=== PATIENT | female | born 1975 | race Caucasian/White ===

== ENCOUNTER 2020-09-18 07:59 | Inpatient (IN) | payer OTHER ==
[~2020-09-18] VITALS: Ht 157.5 cm; Wt 72.6 kg
[~2020-09-18 07:59] MED LIST: AMOXICILLIN875 MG PO
[2020-09-18 08:59] LABS: HEMOGLOBIN 14.8 gm/dl (12.3-15.3); RED BLOOD COUNT 4.88 M/UL (4.00-5.10); WHITE BLOOD COUNT 8.5 K/UL (4.5-11.0)
[2020-09-18 09:33] LABS: BUN/CREATININE RATIO 12 (0-10)
[2020-09-18] MEDS ORDERED: FARXIGA10 MG PO (11:46)
[2020-09-18] MEDS ORDERED: JANUVIA 100 MG100 MG PO (11:46)
[2020-09-18] MEDS ORDERED: IBUPROFEN200 MG PO (11:46)
[2020-09-18] MEDS ORDERED: SLEEP AID25 MG PO (11:47)
[2020-09-18] MEDS ORDERED: ZESTRIL10 MG PO (11:47)
[2020-09-19 01:36] LABS: HEMOGLOBIN 12.9 gm/dl (12.3-15.3); RED BLOOD COUNT 4.41 M/UL (4.00-5.10); WHITE BLOOD COUNT 5.2 K/UL (4.5-11.0)
[2020-09-19 02:21] LABS: BUN/CREATININE RATIO 29 (0-10)
[2020-09-20 07:04] LABS: HEMOGLOBIN 11.4 gm/dl (12.3-15.3); RED BLOOD COUNT 4.03 M/UL (4.00-5.10)
[2020-09-20 07:05] LABS: WHITE BLOOD COUNT 7.5 K/UL (4.5-11.0)
[2020-09-20 07:23] LABS: BUN/CREATININE RATIO 36 (0-10)
[2020-09-21 07:00] LABS: HEMOGLOBIN 12.6 gm/dl (12.3-15.3); RED BLOOD COUNT 4.43 M/UL (4.00-5.10); WHITE BLOOD COUNT 7.7 K/UL (4.5-11.0)
[2020-09-21 07:17] LABS: BUN/CREATININE RATIO 41 (0-10)
[2020-09-22 06:32] LABS: HEMOGLOBIN 12.3 gm/dl (12.3-15.3); RED BLOOD COUNT 4.14 M/UL (4.00-5.10); WHITE BLOOD COUNT 6.4 K/UL (4.5-11.0)
[2020-09-22 06:51] LABS: BUN/CREATININE RATIO 34 (0-10)
[2020-09-23 06:23] LABS: HEMOGLOBIN 13.3 gm/dl (12.3-15.3); RED BLOOD COUNT 4.46 M/UL (4.00-5.10); WHITE BLOOD COUNT 7.9 K/UL (4.5-11.0)
[2020-09-23 06:45] LABS: BUN/CREATININE RATIO 35 (0-10)
[2020-09-23] MEDS ORDERED: VENTOLIN HFA 66.7 GM INH (09:14)
[2020-09-23] MEDS ORDERED: LOPRESSOR 25 MG25 MG PO (09:14)
--- NOTE | 2020-09-23 11:41 | NUR ---
ROOM AIR SATURATION 94%.
== END 2020-09-23 15:38 | disposition home or self-care (01) | DRG 177 ==
LOC: ER1 07:59 → M/S 10:11 → CDU 10:11 → M/S 09-19 00:02
PROVIDERS: Emergency Medicine; Internal Medicine; ADMIT Internal Medicine
PROC: 8E0ZXY6 Isolation (ICD-10-PCS; principal; 2020-09-18)
PROC: XW033E5 Introduction of Remdesivir Anti-infective into Peripheral Vein, Percutaneous Approach, New Technology Group 5 (ICD-10-PCS; 2020-09-18)
PROC: 3E03329 Introduction of Other Anti-infective into Peripheral Vein, Percutaneous Approach (ICD-10-PCS; 2020-09-18)
DX: U07.1 COVID-19 (principal); J96.01 Acute respiratory failure with hypoxia; J12.82 Pneumonia due to coronavirus disease 2019; J15.9 Unspecified bacterial pneumonia; I47.1 Supraventricular tachycardia; E11.9 Type 2 diabetes mellitus without complications; I10 Essential (primary) hypertension; E87.6 Hypokalemia; Z82.49 Family history of ischemic heart disease and other diseases of the circulatory system; Z83.3 Family history of diabetes mellitus; Z80.1 Family history of malignant neoplasm of trachea, bronchus and lung; Z80.8 Family history of malignant neoplasm of other organs or systems; Z98.890 Other specified postprocedural states; Z56.0 Unemployment, unspecified
CPT/HCPCS: 36415; 36600; 71045; 80053; 82550; 82553; 82803; 82962; 83605; 83735; 83874; 83880; 84439; 84443; 84484; 84702; 85025; 85027; 85379; 87040; 93270; 94760; 99285; J0153; J0696; J1100; J1650; J2185; J7030; Q9967; U0002